=== PATIENT | female | born 1990 | race Two or more races ===

== ENCOUNTER 2019-06-14 10:15 | Emergency (ER) | payer OTHER ==
[2019-06-14 10:33] VITALS: BMI 25.4
[2019-06-14] MEDS ORDERED: ACETAMINOPHEN 1000 MG/100 ML VIAL (NON FORMULARY) IVPB ONE (10:57)
[2019-06-14] MEDS ORDERED: ACETAMINOPHEN INJECTION 100 ML IVPB ONE (11:07)
[2019-06-14 11:50] LABS: BASO % 0.5 % (0-2.0); EOS % 1.1 % (0-4.5); EPI CELLS 1.3 /HPF (0-5/HPF); HEMATOCRIT 37.5 % (32.4-45.2); HEMOGLOBIN 12.2 GM/dL (10.7-15.3); HYALINE CASTS 1 /lpf (0-8); LYMPH % 21.6 % (8-40); MCH 26.3 pg (25.7-33.7); MCHC 32.6 g/dl (32.0-36.0); MEAN CELL VOLUME 80.6 fl (80-96); MEAN PLT VOLUME 8.6 fl (7.5-11.1); NEUT % 70.8 % (42.8-82.8); PH,URINE 6.5 (5.0-8.0); PLATELET COUNT 297 K/MM3 (134-434); RBC 4.65 M/mm3 (3.60-5.2); RDW 14.2 % (11.6-15.6); URINE APPEARANCE CLEAR; URINE BACTERIA 3.9 /hpf (NEGATIVE); URINE BILIRUBIN NEGATIVE (NEGATIVE); URINE COLOR YELLOW; URINE GLUCOSE (UA) NEGATIVE (NEGATIVE); URINE KETONE NEGATIVE (NEGATIVE); URINE LEUK ESTERASE NEGATIVE (NEGATIVE); URINE NITRITE NEGATIVE (NEGATIVE); URINE PROTEIN NEGATIVE (NEGATIVE); URINE RBC 245 /hpf (0-4); URINE UROBILINOGEN 0.2 mg/dL (0.2-1.0); URINE WBC 2 /hpf (0-5); WHITE BLOOD COUNT 5.5 K/mm3 (4.0-10.0)
--- NOTE | 2019-06-14 11:50 | PDOC ---
History of Present Illness - General Chief Complaint: Pain, Acute Stated Complaint: LT.FLANK PAIN Time Seen by Provider: 06/14/19 10:42 History Source: Patient Exam Limitations: No Limitations - History of Present Illness Initial Comments: 06/14/19 11:46 Ms Kristopher Velasco is a 29 yo F with a history of kidney stone presenting to the ER with a complaint of right flank pain. Pt states that she has had some flank pain since Sunday or (3-4 days ago) Pain initially was bearable, intermittent Today, however, she developed severe right flank pain, radiating into her groin Pain is described as crampy, no exacerbating or alleviating factors No hematuria but she does note that her urine is orange No fevers or chills She has had similar symptoms in the past but these feel more significant given the pelvic pain she is having Pain is associated with nausea and vomiting x 1 this Pt denies/reports dysuria, hematuria. PMH: denies PSH: denies Meds: ALL: Social: ROS GENERAL/CONSTITUTIONAL: No: fever, chills, weakness, loss of appetite. HEAD, EYES, EARS, NOSE AND THROAT: No: change in vision, ear pain, discharge, sore throat, throat swelling. CARDIOVASCULAR: No: chest pain, lightheadedness, palpitations, syncope RESPIRATORY: No: cough, shortness of breath, wheezing, hemoptysis, stridor. GASTROINTESTINAL: Right lower abdominal pain No: nausea, vomiting, diarrhea GENITOURINARY: No: dysuria, hematuria, frequency, urgency, flank pain. MUSCULOSKELETAL: Right flank pain No: midline back pain SKIN: No: rashes or lesions NEUROLOGIC: No: headache, vertigo, paresthesias, weakness PHYSICAL EXAM GENERAL: The patient is in no acute distress. HEAD: Normal EYES: PERRLA, EOMI, sclera anicteric, conjunctiva clear. ENT: Ears normal, nares patent, oropharynx clear without exudates. Moist mucous membranes. NECK: Normal range of motion, supple LUNGS: Breath sounds equal, clear to auscultation bilaterally. No wheezes, and no crackles. HEART:Regular rate and rhythm, normal S1 and S2 without murmur, rub or gallop. ABDOMEN: Right lower abdomen tender to palpation, no involuntary guarding, no rebound Abd otherwise soft, normoactive bowel sounds. No guarding, no rebound. EXTREMITIES: Normal range of motion, no edema. No clubbing or cyanosis. No erythema, or tenderness. NEUROLOGICAL: Cranial nerves II through XII grossly intact. Normal speech. No focal neurological deficits. MUSCULOSKELETAL: RightCVA tenderness SKIN: no Dermatomal rash noted 06/14/19 12:10 Past History - Past Medical History Allergies/Adverse Reactions: Allergies Allergy/AdvReac Type Severity Reaction Status Date / Time No Known Allergies Allergy Verified 06/14/19 10:33 Home Medications: Ambulatory Orders Ibuprofen [Motrin -] 600 mg PO TID PRN #21 tablet 06/14/19 Tamsulosin HCl [Flomax] 0.4 mg PO HS #10 capsule 06/14/19 traMADol HCL [Ultram] 50 mg PO Q8H PRN #15 tablet MDD 3 06/14/19 COPD: No HTN: No - Immunization History Immunization Up to Date: No - Psycho Social/Smoking Cessation Hx Smoking History: Never smoked Have you smoked in the past 12 months: No Information on smoking cessation initiated: No Hx Alcohol Use: No Drug/Substance Use Hx: No *Physical Exam - Vital Signs Last Vital Signs Temp Pulse Resp BP Pulse Ox 98.3 F 84 18 110/77 98 06/14/19 10:30 06/14/19 10:30 06/14/19 10:30 06/14/19 10:30 06/14/19 11:28 ED Treatment Course - LABORATORY CBC & Chemistry Diagram: 06/14/19 11:21 06/14/19 11:21 - Medications Given in the ED: ED Medications Discontinued Medications Generic Name Dose Route Start Last Admin Trade Name Nahun PRN Reason Stop Dose Admin Acetaminophen 1,000 mg 06/14/19 10:57 06/14/19 11:25 Ofirmev Injection - IVPB 06/14/19 10:58 1,000 mg ONCE ONE Administration Medical Decision Making - Medical Decision Making 06/14/19 11:51 Laboratory Tests 06/14/19 11:21 Urine Blood 3+ H Urine Nitrite Negative Ur Leukocyte Esterase Negative Urine WBC (Auto) 2 Urine RBC (Auto) 245 06/14/19 12:07 Laboratory Tests 06/14/19 11:21 WBC 5.5 Hgb 12.2 Hct 37.5 Plt Count 297 06/14/19 12:17 Laboratory Tests 06/14/19 06/14/19 11:21 11:21 BUN 10.2 Creatinine 0.6 Serum , Qual Negative Pain is 5/10 Toradol ordered Discharge - Discharge Information Problems reviewed: Yes Clinical Impression/Diagnosis: Kidney stone on right side Condition: Stable Disposition: HOME - Admission No - Additional Discharge Information Prescriptions: Ibuprofen [Motrin -] 600 mg PO TID PRN #21 tablet PRN Reason: Pain Tamsulosin HCl [Flomax] 0.4 mg PO HS #10 capsule traMADol HCL [Ultram] 50 mg PO Q8H PRN #15 tablet MDD 3 PRN Reason: Severe Pain - Follow up/Referral Referrals: ON STAFF,NOT [Primary Care Provider] - Sahil Medley MD [Staff Physician] - Merary Argueta MD [Staff Physician] - - Patient Discharge Instructions Patient Printed Discharge Instructions: Kidney Stones -- Adult, DI for Kidney Stones Additional Instructions: Ms. Kristopher Velasco Thank you for coming in to the ER today As we discussed, you have a 5 mm kidney stone! You may pass it on your own with medications If you can not, the Urologist may want to do a procedure to make the stone smaller, so it's easier to pass (I have put the name of one in your chart) I has prescribed Flomax 0.4mg at night (until you pass the kidney stone) I have also prescribed Motrin (you can get this over the counter, the gel caps are really good) You can also take tylenol in between the motrin (I tried to send over Ultram for you but your pharmacy does not permit electronic prescriptions of narcotics from our system) Also Your CT demonstrated an ovarian cyst You should follow this up with a Senior Procurement Manager (try to make an appointment in the next week) Come back to the ER for fevers, chills, inability to eat, severe pain that is not controlled with pain medications, anything else that makes you concerned!! - Post Discharge Activity Work/Back to School Note: Back to Work
[2019-06-14 12:11] LABS: ALBUMIN 4.2 g/dl (3.4-5.0); BILIRUBIN,TOTAL 0.4 mg/dL (0.2-1); BLOOD UREA NITROGEN 10.2 mg/dL (7-18); CALCIUM 9.6 mg/dL (8.5-10.1); CREATININE 0.6 mg/dL (0.55-1.3); POTASSIUM 4.5 mmol/L (3.5-5.1); TOT PROT 7.6 g/dl (6.4-8.2)
[2019-06-14] MEDS ORDERED: SODIUM CHLORIDE 1,000 ML IV STA (12:16)
[2019-06-14] MEDS ORDERED: KETOROLAC TROMETHAMINE 30 MG/1 ML VIAL IVPUSH ONE (12:16)
[2019-06-14] MEDS ORDERED: KETOROLAC TROMETHAMINE 30 MG/1 ML VIAL ONE (12:40)
[2019-06-14 15:04] VITALS: BP 110/76; PULSE 89; TEMP 98.5
== END 2019-06-14 15:04 | disposition home or self-care (01) ==
LOC: JER 10:15 → SUPCPDRO 10:15 → JER 15:04
PROC: 3E033NZ Introduction of Analgesics, Hypnotics, Sedatives into Peripheral Vein, Percutaneous Approach (ICD-10-PCS; principal; 2019-06-14)
PROC: 3E0333Z Introduction of Anti-inflammatory into Peripheral Vein, Percutaneous Approach (ICD-10-PCS; 2019-06-14)
DX: N20.0 Calculus of kidney (principal); Z87.442 Personal history of urinary calculi
CPT/HCPCS: 36415; 74176-TC; 80053; 81003; 84703; 85025; 87086; 99285-25; J0131; J7030

== ENCOUNTER 2020-02-24 14:18 | Emergency (ER) | payer OTHER ==
[2020-02-24 14:28] VITALS: BP 130/81; PULSE 88; TEMP 98.4; BMI 23.8
--- NOTE | 2020-02-24 14:48 | PDOC ---
History of Present Illness - General Chief Complaint: Vaginal Bleeding Stated Complaint: VAGINAL BLEEDING Time Seen by Provider: 02/24/20 14:44 History Source: Patient - History of Present Illness Timing/Duration: reports: constant Quality: reports: moderate Past History - Medical History Allergies/Adverse Reactions: Allergies Allergy/AdvReac Type Severity Reaction Status Date / Time No Known Allergies Allergy Verified 02/24/20 14:24 Home Medications: Ambulatory Orders Ibuprofen [Motrin -] 600 mg PO TID PRN #21 tablet 06/14/19 Tamsulosin HCl [Flomax] 0.4 mg PO HS #10 capsule 06/14/19 traMADol HCL [Ultram] 50 mg PO Q8H PRN #15 tablet MDD 3 06/14/19 COPD: No HTN: No - Reproductive History Is Patient Now?: No - Immunization History Immunization Up to Date: No - Psycho-Social/Smoking History Smoking History: Never smoked Have you smoked in the past 12 months: No Information on smoking cessation initiated: No - Substance Abuse Hx (Audit-C & DAST Scrn) How often the patient has a drink containing alcohol: Never Score: In Men: 4 or > Positive; In Women: 3 or > Positive: 0 Screen Result (Pos requires Nsg. Audit-10AR): Negative In the last yr the pt used illegal drug/Rx for NonMed reason: No Score: Yes response is considered Positive: 0 Screen Result (Positive result requires Nsg. DAST-10): Negative Review of Systems - Review of Systems Constitutional: No: Weakness ABD/GI: No: Nausea, Vomiting, Abdominal cramping *Physical Exam - Vital Signs Last Vital Signs Temp Pulse Resp BP Pulse Ox 98.4 F 88 18 130/81 99 02/24/20 14:25 02/24/20 14:25 02/24/20 14:25 02/24/20 14:25 02/24/20 14:25 - Physical Exam General Appearance: Yes: Appropriately Dressed. No: Apparent Distress HEENT: positive: Normal Voice Neck: positive: Supple Gastrointestinal/Abdominal: positive: Soft. negative: Tender Integumentary: positive: Dry, Warm Neurologic: positive: Fully Oriented, Alert, Normal Mood/Affect Medical Decision Making - Medical Decision Making 02/24/20 14:46 21 , s/p remote miscarriage, has been trying to conceive for the past year and a half and now here with irregular vag bleeding. Patient states her LMP was > 2 weeks ago on 02/04 and started bleeding again several days ago, using 3-4 pads a day w/ clots. No abd pain, n/v, dizziness or weakness. Has had multiple neg preg tests at home including this a.m. States she gets monthly menses and usually does not bleed between periods. Patient states she presented to the ED because she believes that she may be as she continues to bleed, but that maybe she is too early for home preg tests to be positive so here requesting preg test in ED. Pt states she was told last year that her tubes were blocked and that she has since had a procedure to "unblock my tubes" see exam DUB Not on control Multiple home preg tests neg per hx Upreg neg in ED today Dc w/ INSTALLER TECHNICIAN for further eval Discharge - Discharge Information Problems reviewed: Yes Clinical Impression/Diagnosis: DUB (dysfunctional uterine bleeding) Condition: Good - Follow up/Referral - Patient Discharge Instructions Additional Instructions: Your urine test was negative today. Please follow-up with your INSTALLER TECHNICIAN for abnormal vaginal bleeding - Post Discharge Activity
[2020-02-24 15:25] LABS: EPI CELLS 20 /uL (0-25.1); HYALINE CASTS 2 /uL (0-3.1); PH,URINE 5.5 (5.0-8.0); URINE APPEARANCE CLOUDY; URINE BACTERIA 231 /uL (0-1359); URINE BILIRUBIN NEGATIVE (NEGATIVE); URINE COLOR DK YELLOW; URINE GLUCOSE (UA) NEGATIVE (NEGATIVE); URINE KETONE TRACE (NEGATIVE); URINE LEUK ESTERASE NEGATIVE (NEGATIVE); URINE NITRITE NEGATIVE (NEGATIVE); URINE PROTEIN TRACE (NEGATIVE); URINE WBC 13 /uL (0-25.8)
[2020-02-24 15:40] LABS: URINE RBC 36 /uL (0-23.9); YEAST NON SEEN (NEGATIVE)
== END 2020-02-24 16:30 | disposition home or self-care (01) ==
LOC: JER 14:18
DX: N93.8 Other specified abnormal uterine and vaginal bleeding (principal)
CPT/HCPCS: 81003; 84703; 99283-25

== ENCOUNTER 2023-06-18 07:12 | Emergency (ER) | payer SELFPAY ==
[2023-06-18 07:36] VITALS: BP 121/84; PULSE 77; RESP 18; TEMP 98.3; BMI 24.7
[2023-06-18] MEDS ORDERED: ACETAMINOPHEN 1000 MG/100 ML BAG IVPB ONE (08:12)
[2023-06-18] MEDS ORDERED: ACETAMINOPHEN INJECTION 100 ML IVPB ONE (08:13)
[2023-06-18 08:29] LABS: BASO % 0.2 % (0-2.0); EOS % 0.2 % (0-4.5); HEMATOCRIT 38.7 % (32.4-45.2); HEMOGLOBIN 12.3 GM/dL (10.7-15.3); LYMPH % 10.3 % (8-40); MCH 24.3 pg (25.7-33.7); MCHC 31.7 g/dl (32.0-36.0); MEAN CELL VOLUME 76.6 fl (80-96); MEAN PLT VOLUME 8.1 fl (7.5-11.1); MONO % 4.1 % (3.8-10.2); NEUT % 85.2 % (42.8-82.8); PLATELET COUNT 319 10^3/uL (134-434); RBC 5.05 M/mm3 (3.60-5.2); RDW 16.8 % (11.6-15.6); WHITE BLOOD COUNT 10.3 K/mm3 (4.0-10.0)
[2023-06-18 08:32] LABS: EPI CELLS 13 /uL (0-25.1); HYALINE CASTS 0 /uL (0-3.1); URINE APPEARANCE CLOUDY; URINE BACTERIA 13 /uL (0-1359); URINE BILIRUBIN NEGATIVE (NEGATIVE); URINE COLOR YELLOW; URINE GLUCOSE (UA) NEGATIVE (NEGATIVE); URINE KETONE NEGATIVE (NEGATIVE); URINE LEUK ESTERASE NEGATIVE (NEGATIVE); URINE NITRITE NEGATIVE (NEGATIVE); URINE PROTEIN 1+ (NEGATIVE); URINE RBC 4759 /uL (0-23.9); URINE UROBILINOGEN 0.2 mg/dL (0.2-1.0); URINE WBC 20 /uL (0-25.8)
[2023-06-18] MEDS ORDERED: KETOROLAC TROMETHAMINE 15 MG/ML VIAL IVPUSH ONE (08:48)
[2023-06-18] MEDS ORDERED: KETOROLAC TROMETHAMINE 15 MG/ML VIAL ONE (08:56)
[2023-06-18 09:11] LABS: URINE CRYSTALS NEGATIVE /hpf
[2023-06-18 09:33] LABS: POTASSIUM 3.8 mmol/L (3.5-5.1)
[2023-06-18 09:35] LABS: CALCIUM 9.4 mg/dL (8.5-10.1)
[2023-06-18 09:36] LABS: ALBUMIN 4.2 g/dl (3.4-5.0); BLOOD UREA NITROGEN 11.1 mg/dL (7-18)
[2023-06-18 09:39] LABS: CREATININE 0.8 mg/dL (0.55-1.3)
[2023-06-18 09:41] LABS: BILIRUBIN,TOTAL 0.2 mg/dL (0.2-1); TOT PROT 7.6 g/dl (6.4-8.2)
== END 2023-06-18 10:56 | disposition home or self-care (01) ==
LOC: JER 07:12
PROC: 3E033NZ Introduction of Analgesics, Hypnotics, Sedatives into Peripheral Vein, Percutaneous Approach (ICD-10-PCS; principal; 2023-06-18)
PROC: 3E0333Z Introduction of Anti-inflammatory into Peripheral Vein, Percutaneous Approach (ICD-10-PCS; 2023-06-18)
DX: R10.30 Lower abdominal pain, unspecified (principal); N20.0 Calculus of kidney
CPT/HCPCS: 36415; 74176-TC; 80053; 81003; 84703; 85025; 87086; 99284-25